=== PATIENT | female | born 1955 | race African-American/Black ===

== ENCOUNTER 2024-08-30 14:05 | Outpatient (CLI) | payer MEDICARE | END 2024-08-30 14:06 | disposition home or self-care (01) | LOC: CSHMAMMO 14:05 | PROVIDERS: ATTEND Family Medicine | DX: Z78.0 Asymptomatic menopausal state (principal); M81.0 Age-related osteoporosis without current pathological fracture; M85.851 Other specified disorders of bone density and structure, right thigh; M85.852 Other specified disorders of bone density and structure, left thigh | CPT/HCPCS: 77080 ==